=== PATIENT | male | born 1975 ===

== ENCOUNTER 2022-01-15 16:38 | Emergency (ER) | payer MEDICAID ==
[~2022-01-15] VITALS: Ht 170.2 cm; Wt 80.9 kg
[~2022-01-15 16:38] MED LIST: ACET-784 PO
[2022-01-15 18:06] VITALS: BP 122/68
[2022-01-15] MEDS ORDERED: PERTUSS(ACELL),DIPH,TET VAC/PF 0.5 ML SYRINGE IM. ONE (18:15)
== END 2022-01-15 18:39 | disposition home or self-care (01) ==
LOC: EMS 16:38
DX: S29.9XXA Unspecified injury of thorax, initial encounter (principal); F15.90 Other stimulant use, unspecified, uncomplicated; Y35.839A Legal intervention involving a conducted energy device, unspecified person injured, initial encounter; Y93.89 Activity, other specified; Y92.89 Other specified places as the place of occurrence of the external cause; Y99.8 Other external cause status
CPT/HCPCS: 90471; 90715; 99283